=== PATIENT | male | born 1965 | race Caucasian/White ===

== ENCOUNTER 2019-01-07 17:24 | Emergency (ER) | payer OTHER ==
[~2019-01-07] VITALS: Ht 185.4 cm; Wt 72.6 kg
[2019-01-07 17:36] VITALS: Ht 185.4 cm; Wt 72.6 kg
[2019-01-07 20:32] VITALS: BP 132/90
== END 2019-01-07 20:32 | disposition home or self-care (01) ==
LOC: ED 17:24
DX: M79.671 Pain in right foot (principal); R22.41 Localized swelling, mass and lump, right lower limb; L98.9 Disorder of the skin and subcutaneous tissue, unspecified; Z59.0 Homelessness

== ENCOUNTER 2019-08-28 20:28 | Emergency (ER) | payer OTHER ==
[~2019-08-28] VITALS: Ht 185.4 cm; Wt 73.5 kg
[2019-08-28 20:34] VITALS: Ht 185.4 cm; Wt 73.5 kg
[2019-08-28 22:42] VITALS: BP 156/105
== END 2019-08-28 22:42 | disposition home or self-care (01) ==
LOC: ED 20:28
DX: S92.422A Displaced fracture of distal phalanx of left great toe, initial encounter for closed fracture (principal); W01.0XXA Fall on same level from slipping, tripping and stumbling without subsequent striking against object, initial encounter; Y93.89 Activity, other specified; Y92.89 Other specified places as the place of occurrence of the external cause; Y99.8 Other external cause status
CPT/HCPCS: Q0092